=== PATIENT | female | born 1980 | race Caucasian/White ===

== ENCOUNTER 2017-04-10 23:00 | Observation (INO) | payer OTHER ==
[~2017-04-10] VITALS: Ht 167.6 cm; Wt 65.8 kg
== END 2017-04-11 01:05 | disposition home or self-care (01) ==
LOC: SPU 23:00
PROVIDERS: ADMIT Obstetrics & Gynecology; ATTEND Obstetrics & Gynecology
DX: O26.893 Other specified pregnancy related conditions, third trimester (principal); R10.30 Lower abdominal pain, unspecified; Z3A.30 30 weeks gestation of pregnancy
CPT/HCPCS: 76805; G0378 ×2

== ENCOUNTER 2017-06-17 11:05 | Inpatient (IN) | payer OTHER ==
[~2017-06-17] VITALS: Ht 167.6 cm; Wt 68.0 kg
[2017-06-21] MEDS ORDERED: LR 1,000 ML IV SCH (09:07)
[2017-06-21] MEDS ORDERED: NALBUPHINE HCL 10 MG/ML AMP IVP PRN (09:15)
[2017-06-21] MEDS ORDERED: TERBUTALINE SULFATE 1 MG/ML VIAL SUBCUT ONE (09:15)
[2017-06-21] MEDS ORDERED: DINOPROSTONE 10 MG SUPP VG ONE (09:15)
[2017-06-21] MEDS ORDERED: AMPICILLIN SODIUM 2 GM in NS 100 ML IV ONE (09:15)
[2017-06-21 10:17] LABS: BASOPHILS # (AUTO) 0.1 K/uL (0.0-0.2); BASOPHILS % (AUTO) 0.9 % (0.0-2.0); EOSINOPHILS # (AUTO) 0.2 K/uL (0.0-0.4); EOSINOPHILS % (AUTO) 2.7 % (0.0-4.0); HEMATOCRIT 36.1 % (36-48); HEMOGLOBIN 12.3 g/dL (12.0-16.0); LYMPHOCYTES # (AUTO) 1.9 K/uL (1.0-5.5); MEAN CORPUSCULAR HEMOGLOBIN 33 pg (27-31); MEAN CORPUSCULAR HGB CONC 34 % (32-36); MEAN CORPUSCULAR VOLUME 98 fL (79.0-98.0); MONOCYTES # (AUTO) 0.8 K/uL (0.0-1.0); MONOCYTES % (AUTO) 9.4 % (1.7-9.3); NEUTROPHILS # (AUTO) 5.1 K/uL (1.8-7.7); PLATELET COUNT (AUTO) 157 K/uL (130-430); RED BLOOD CELL COUNT(AUTO) 3.68 MIL/uL (4.2-6.2); RED CELL DISTRIBUTION WIDTH 13.6 % (9.0-15.0); WHITE BLOOD COUNT (AUTO) 8.1 K/uL (4.8-10.8)
[2017-06-21 13:48] VITALS: BP_SYST 118
[2017-06-21] MEDS: AMPICILLIN SODIUM 1 GM in NS 50 ML IV SCH ×2 (15:03→19:07)
[2017-06-21] MEDS ORDERED: fentaNYL CITRATE/PF 100 MCG/2 ML AMP IVP ONE ×2 (15:30→17:30)
[2017-06-21] MEDS ORDERED: fentaNYL CITRATE/PF 100 MCG/2 ML AMP ONE (15:39)
[2017-06-21] MEDS ORDERED: FENT2mCg/mL-ROPIVA0.2%/NS EPID 150 ML EP ONE (15:39)
[2017-06-21] MEDS ORDERED: LR 500 ML IV ONE (15:59)
[2017-06-21] MEDS ORDERED: ePHEDrine sulfate 50 MG/ML VIAL IVP PRN (16:00)
[2017-06-21] MEDS ORDERED: FENT2mCg/mL-ROPIVA0.2%/NS EPID 150 ML EP SCH (16:00)
[2017-06-21] MEDS ORDERED: OXYTOCIN/NORMAL SALINE 1,000 ML IV SCH ×2 (18:46→20:40)
[2017-06-21] MEDS ORDERED: OXYTOCIN/NORMAL SALINE 1,000 ML IV ONE (20:40)
[2017-06-21] MEDS ORDERED: METHYLERGONOVINE MALEATE 0.2 MG TABLET PO PRN (20:45)
[2017-06-21] MEDS ORDERED: RHO(D) IMMUNE GLOBULIN/MALTOSE 1500 UNITS/1.3 ML (WINHRO) IM PRN (20:45)
[2017-06-21] MEDS ORDERED: MEASLES,MUMPS&RUBELLA VACC/PF 12500 UNIT/0.5 ML VIAL SUBQ PRN (20:45)
[2017-06-21] MEDS ORDERED: LANOLIN 7 GM OINT. TP PRN (20:45)
[2017-06-21] MEDS ORDERED: ANUSOL 1 EA SUPP.RECT (PREPARATION H) RC PRN (20:45)
[2017-06-21] MEDS ORDERED: HYDROCORTISONE 0.5%, 28.35 GM TOPICAL CREAM TP PRN (20:45)
[2017-06-21] MEDS ORDERED: GLYCERIN/WITCH HAZEL (TUCKS PADS) TP PRN (20:45)
[2017-06-21] MEDS ORDERED: HYDROcodone/ACETAMIN 5-325 MG TAB (NORCO/ VICODIN) PO PRN ×2 (20:45)
[2017-06-21] MEDS ORDERED: SENNOSIDES/DOCUSATE SODIUM 1 TAB TABLET(SENOKOT-S) PO PRN (20:45)
[2017-06-21] MEDS ORDERED: TEMAZEPAM 15 MG CAPSULE PO PRN (20:45)
[2017-06-21] MEDS ORDERED: DERMOPLAST SPRAY TP PRN (20:45)
[2017-06-21] MEDS ORDERED: DOCUSATE SODIUM 100 MG CAPSULE PO PRN (20:45)
[2017-06-22] MEDS: IBUPROFEN 600 MG TABLET PO SCH ×3 (00:02→12:06)
[2017-06-22] MEDS: ACETAMINOPHEN 325 MG TABLET PO PRN ×3 (02:37→22:16)
[2017-06-22 06:41] LABS: HEMATOCRIT 35.9 % (36-48); HEMOGLOBIN 12.5 g/dL (12.0-16.0)
[2017-06-22] MEDS ORDERED: OXYCODONE/ACETAMINOPHEN 5-325 TABLET PO PRN (09:15)
[2017-06-23] MEDS: IBUPROFEN 600 MG TABLET PO SCH ×4 (00:08→18:13)
== END 2017-06-23 20:15 | disposition home or self-care (01) | DRG 775 ==
LOC: SPU 06-21 07:54
PROVIDERS: ADMIT Obstetrics & Gynecology; ATTEND Obstetrics & Gynecology
PROC: 10D07Z6 Extraction of Products of Conception, Vacuum, Via Natural or Artificial Opening (ICD-10-PCS; principal; 2017-06-21)
PROC: 0HQ9XZZ Repair Perineum Skin, External Approach (ICD-10-PCS; 2017-06-21)
PROC: 00HU33Z Insertion of Infusion Device into Spinal Canal, Percutaneous Approach (ICD-10-PCS; 2017-06-21)
DX: O70.0 First degree perineal laceration during delivery (principal); Z37.0 Single live birth; Z3A.40 40 weeks gestation of pregnancy
CPT/HCPCS: 36415; 81002-TC; 85018-TC; 85025; 86592; 86886; 86900; 86901; J0290; J2590; J3010

== ENCOUNTER 2019-01-24 13:41 | Emergency (ER) | payer OTHER ==
[~2019-01-24] VITALS: Ht 167.6 cm; Wt 52.2 kg
[2019-01-24 13:41] VITALS: BP_SYST 119
[2019-01-24 14:34] LABS: BASOPHILS # (AUTO) 0.1 K/uL (0.0-0.2); BASOPHILS % (AUTO) 1.1 % (0.0-2.0); EOSINOPHILS # (AUTO) 0.4 K/uL (0.0-0.4); EOSINOPHILS % (AUTO) 4.8 % (0.0-4.0); HEMATOCRIT 35.6 % (36-48); LYMPHOCYTES # (AUTO) 2.1 K/uL (1.0-5.5); LYMPHOCYTES % (AUTO) 27.5 % (20.5-51.5); MEAN CORPUSCULAR HEMOGLOBIN 32 pg (27-31); MEAN CORPUSCULAR HGB CONC 34 % (32-36); MEAN CORPUSCULAR VOLUME 94 fL (79.0-98.0); MONOCYTES # (AUTO) 0.6 K/uL (0.0-1.0); MONOCYTES % (AUTO) 8.2 % (1.7-9.3); NEUTROPHILS # (AUTO) 4.5 K/uL (1.8-7.7); NEUTROPHILS % (AUTO) 58.4 % (40.0-70.0); PLATELET COUNT (AUTO) 123 K/uL (130-430); RED CELL DISTRIBUTION WIDTH 12.9 % (9.0-15.0); WHITE BLOOD COUNT (AUTO) 7.7 K/uL (4.8-10.8)
[2019-01-24 14:36] LABS: BILIRUBIN,URINE NEGATIVE (NEGATIVE); BLOOD, URINE 1+ (NEGATIVE); CLARITY/URINE CLEAR (CLEAR); COLOR,URINE YELLOW (YELLOW); GLUCOSE,URINE NEGATIVE (NEGATIVE); KETONES,URINE NEGATIVE (NEGATIVE); LEUKOCYTE ESTERASE ,URINE TRACE (NEGATIVE); NITRITE, URINE NEGATIVE (NEGATIVE); PROTEIN URINE NEGATIVE (NEGATIVE); UROBILINOGEN,URINE 0.2 (0.2-1.0)
[2019-01-24 14:50] LABS: BACTERIA,URINE FEW /HPF (None Seen)
[2019-01-24 14:51] LABS: CALCIUM 9.1 mg/dL (8.4-11.0); CREATININE 0.51 mg/dL (0.55-1.30); POTASSIUM 3.9 mmol/L (3.5-5.1)
[2019-01-24 15:17] LABS: ALBUMIN 3.6 g/dL (3.4-4.8); TOTAL BILIRUBIN 0.3 mg/dL (0.0-1.0)
[2019-01-24 16:53] VITALS: BP_SYST 114
== END 2019-01-24 16:53 | disposition home or self-care (01) ==
LOC: SED 13:41
DX: O20.0 Threatened abortion (principal); D69.6 Thrombocytopenia, unspecified; R82.71 Bacteriuria; Z3A.01 Less than 8 weeks gestation of pregnancy
CPT/HCPCS: 36415; 76801; 76817; 80053; 81000-TC; 84702-TC; 85025; 86901; 87086; 99284

== ENCOUNTER 2019-02-12 16:18 | Emergency (ER) | payer OTHER ==
[~2019-02-12] VITALS: Ht 167.6 cm; Wt 54.4 kg
[2019-02-12 16:45] VITALS: BP_SYST 118
[2019-02-12 18:27] LABS: BILIRUBIN,URINE NEGATIVE (NEGATIVE); BLOOD, URINE NEGATIVE (NEGATIVE); CLARITY/URINE SL HAZY (CLEAR); COLOR,URINE YELLOW (YELLOW); GLUCOSE,URINE NEGATIVE (NEGATIVE); KETONES,URINE NEGATIVE (NEGATIVE); LEUKOCYTE ESTERASE ,URINE NEGATIVE (NEGATIVE); NITRITE, URINE NEGATIVE (NEGATIVE); PROTEIN URINE NEGATIVE (NEGATIVE); UROBILINOGEN,URINE 0.2 (0.2-1.0)
[2019-02-12 20:11] VITALS: BP_SYST 124
== END 2019-02-12 20:10 | disposition home or self-care (01) ==
LOC: SED 16:18
DX: O26.891 Other specified pregnancy related conditions, first trimester (principal); R10.2 Pelvic and perineal pain; Z3A.09 9 weeks gestation of pregnancy
CPT/HCPCS: 36415; 76801; 76802; 76810; 81003; 81025; 84702-TC; 87086; 99284

== ENCOUNTER 2019-06-15 10:01 | Observation (INO) | payer OTHER ==
[~2019-06-15] VITALS: Ht 167.6 cm; Wt 63.5 kg
== END 2019-06-15 10:55 | disposition home or self-care (01) ==
LOC: SPU 10:01
PROVIDERS: ADMIT Obstetrics & Gynecology; ATTEND Obstetrics & Gynecology
DX: O36.8130 Decreased fetal movements, third trimester, not applicable or unspecified (principal); Z3A.29 29 weeks gestation of pregnancy
CPT/HCPCS: G0378

== ENCOUNTER 2019-07-31 00:15 | Inpatient (IN) | payer OTHER ==
[~2019-07-31] VITALS: Ht 167.6 cm; Wt 66.2 kg
[2019-07-31] MEDS ORDERED: LR 1,000 ML IV SCH (00:52)
[2019-07-31] MEDS ORDERED: TERBUTALINE SULFATE 1 MG/ML VIAL SUBCUT PRN (01:00)
[2019-07-31] MEDS ORDERED: TERBUTALINE SULFATE 1 MG/ML VIAL ONE (01:05)
[2019-07-31 01:39] LABS: BILIRUBIN,URINE NEGATIVE (NEGATIVE); BLOOD, URINE NEGATIVE (NEGATIVE); CLARITY/URINE CLEAR (CLEAR); COLOR,URINE YELLOW (YELLOW); GLUCOSE,URINE NEGATIVE (NEGATIVE); KETONES,URINE NEGATIVE (NEGATIVE); LEUKOCYTE ESTERASE ,URINE 1+ (NEGATIVE); NITRITE, URINE NEGATIVE (NEGATIVE); PROTEIN URINE NEGATIVE (NEGATIVE); UROBILINOGEN,URINE 0.2 (0.2-1.0)
[2019-07-31 01:43] VITALS: BP_SYST 117
[2019-07-31] MEDS ORDERED: NIFEdipine (O.B. USE ONLY) 10 MG CAPSULE PO ONE (02:01)
[2019-07-31] MEDS: BETAMET ACET/BETAMET NA PH 30 MG/5 ML VIAL IM SCH ×2 (02:04→17:00)
[2019-07-31] MEDS ORDERED: BETAMET ACET/BETAMET NA PH 30 MG/5 ML VIAL IM ONE (02:07)
[2019-07-31 02:11] LABS: BASOPHILS # (AUTO) 0.1 K/uL (0.0-0.2); BASOPHILS % (AUTO) 0.6 % (0.0-2.0); EOSINOPHILS # (AUTO) 0.2 K/uL (0.0-0.4); EOSINOPHILS % (AUTO) 1.9 % (0.0-4.0); HEMATOCRIT 33.9 % (36-48); HEMOGLOBIN 11.8 g/dL (12.0-16.0); LYMPHOCYTES # (AUTO) 3.2 K/uL (1.0-5.5); LYMPHOCYTES % (AUTO) 33.5 % (20.5-51.5); MEAN CORPUSCULAR HEMOGLOBIN 35 pg (27-31); MEAN CORPUSCULAR HGB CONC 35 % (32-36); MEAN CORPUSCULAR VOLUME 100 fL (79.0-98.0); MONOCYTES # (AUTO) 0.9 K/uL (0.0-1.0); NEUTROPHILS # (AUTO) 5.2 K/uL (1.8-7.7); PLATELET COUNT (AUTO) 135 K/uL (130-430); RED BLOOD CELL COUNT(AUTO) 3.39 MIL/uL (4.2-6.2); RED CELL DISTRIBUTION WIDTH 14.2 % (9.0-15.0); WHITE BLOOD COUNT (AUTO) 9.5 K/uL (4.8-10.8)
[2019-07-31 02:31] LABS: BACTERIA,URINE FEW /HPF (None Seen); RBC,URINE 0-3 /HPF (0-3)
[2019-07-31] MEDS ORDERED: ONDANSETRON HCL 4 MG/2 ML VIAL IVP PRN (02:45)
[2019-07-31] MEDS ORDERED: MAG-AL HYDROX/SIMETH 30 ML UDC PO PRN (02:45)
[2019-07-31] MEDS ORDERED: ONDANSETRON HCL 4 MG/2 ML VIAL ONE (03:02)
[2019-07-31] MEDS ORDERED: MAG-AL HYDROX/SIMETH 30 ML UDC ONE (03:26)
[2019-07-31] MEDS: NIFEdipine (O.B. USE ONLY) 10 MG CAPSULE PO SCH ×2 (08:00→14:14)
== END 2019-07-31 18:00 | disposition home or self-care (01) | DRG 833 ==
LOC: SPU 00:15 → OBSVTOIN 00:50
PROVIDERS: ADMIT Obstetrics & Gynecology; ATTEND Obstetrics & Gynecology
DX: O60.03 Preterm labor without delivery, third trimester (principal); O30.003 Twin pregnancy, unspecified number of placenta and unspecified number of amniotic sacs, third trimester; Z3A.34 34 weeks gestation of pregnancy
CPT/HCPCS: 36415; 59899; 81000-TC; 85025; 86886; 86900; 86901; 87086; G0378; J0702; J2405; J3105; J7120

== ENCOUNTER 2021-03-30 14:34 | Outpatient (CLI) | payer OTHER ==
[2021-03-30 16:35] LABS: ALBUMIN 3.9 g/dL (3.4-4.8); CALCIUM 8.6 mg/dL (8.4-11.0); CREATININE 0.68 mg/dL (0.55-1.30); FREE T4 (FREE THYROXINE) 0.9 ng/dl (0.8-1.5); POTASSIUM 3.9 mmol/L (3.5-5.1); THYROID STIMULATING HORMONE 1.61 uIu/mL (0.36-3.74); TOTAL BILIRUBIN 0.4 mg/dL (0.0-1.0)
== END 2021-03-30 20:16 | disposition home or self-care (01) ==
LOC: SLB 14:34
DX: R45.4 Irritability and anger (principal); R45.86 Emotional lability
CPT/HCPCS: 36415; 80053; 82670; 83001; 83002; 83970; 84144; 84403; 84439; 84443; 86376; 86800